=== PATIENT | female | born 1970 | race American Indian/Alaskan Native ===

== ENCOUNTER 2017-05-19 10:16 | Emergency (ER) | payer SELFPAY ==
[2017-05-19 15:46] LABS: Hematocrit 40.5 % (30.3-42.9); Hemoglobin 12.9 gm/dl (10.1-14.3); Mean Corpuscular HGB Conc 32 % (30-34); Mean Corpuscular Hemoglobin 26 pg (28-32); Mean Corpuscular Volume 82 fl (79-97); Platelet Count 302 K/mm3 (140-440); Red Blood Count 4.93 M/mm3 (3.65-5.03); Red Cell Distribution Width 14.6 % (13.2-15.2); White Blood Count 13.6 K/mm3 (4.5-11.0)
[2017-05-19 15:56] LABS: Anion Gap 13 mmol/L; BUN/Creatinine Ratio 27; Blood Urea Nitrogen 19 mg/dL (7-17); Calcium 9.6 mg/dL (8.4-10.2); Carbon Dioxide 28 mmol/L (22-30); Chloride 106.6 mmol/L (98-107); Glucose 98 mg/dL (65-100); Potassium 4.6 mmol/L (3.6-5.0); Sodium 143 mmol/L (137-145)
[2017-05-19] MEDS ORDERED: LIDOCAINE VISCOUS 2% PO ONE (18:08)
[2017-05-19] MEDS ORDERED: ALUM-MAG HYDROX-SIMETH 200-200-20MG/5ML PO ONE (18:08)
[2017-05-19 18:11] LABS: Basophils % (Manual) 0 % (0.0-1.8); Blastocytes % (Manual) 0 %
[2017-05-19 18:13] LABS: Anisocytosis 1+; Diff Status Complete; Platelet Estimate Consistent w Auto
--- NOTE | 2017-05-19 18:13 | Emergency Department Report ---
ED General Adult HPI - General Chief complaint: Chest Pain Stated complaint: HEADACHE, CHEST PAIN Time Seen by Provider: 05/19/17 17:37 Source: patient Mode of arrival: Ambulatory Limitations: No Limitations - History of Present Illness Initial comments: Patient is a 47-year-old female past history of smoking and hypertension who presents with chest pain. Patient is a stat chest pain has been going on for the last 5 days. Patient states chest pains a 5 out 10 smoking in the middle of her chest is constant and nothing makes it better R cane with her children makes the pain worse. Patient states it's a deep throbbing pain. Patient also states that she has had some mild shortness of breath. - Related Data Previous Rx's Medication Instructions Recorded Last Taken Type Acetaminophen 1,000 mg PO Q6HR PRN #30 tablet 05/19/17 Unknown Rx Lisinopril/Hydrochlorothiazide 1 tab PO QDAY #30 tablet 05/19/17 Unknown Rx [Zestoretic 10-12.5 mg] Allergies Allergy/AdvReac Type Severity Reaction Status Date / Time No Known Allergies Allergy Unverified 05/19/17 10:33 ED Review of Systems ROS: Stated complaint: HEADACHE, CHEST PAIN Other details as noted in HPI Constitutional: denies: chills, fever Eyes: denies: eye pain, eye discharge, vision change ENT: denies: ear pain, throat pain Respiratory: shortness of breath. denies: cough, wheezing Cardiovascular: chest pain. denies: palpitations Endocrine: no symptoms reported Gastrointestinal: denies: abdominal pain, nausea, diarrhea Genitourinary: denies: urgency, dysuria, discharge Musculoskeletal: denies: back pain, joint swelling, arthralgia Skin: denies: rash, lesions Neurological: denies: headache, weakness, paresthesias Psychiatric: denies: anxiety, depression Hematological/Lymphatic: denies: easy bleeding, easy bruising ED Past Medical Hx - Past Medical History Previous Medical History?: Yes Hx Hypertension: Yes - Surgical History Past Surgical History?: Yes Additional Surgical History: fatty tumor removed right under arm, oopherectomy - Social History Smoking Status: Current Every Day Smoker Substance Use Type: None - Medications Home Medications: Home Medications Medication Instructions Recorded Confirmed Last Taken Type Acetaminophen 1,000 mg PO Q6HR PRN #30 tablet 05/19/17 Unknown Rx Lisinopril/Hydrochlorothiazide 1 tab PO QDAY #30 tablet 05/19/17 Unknown Rx [Zestoretic 10-12.5 mg] ED Physical Exam - General Limitations: No Limitations General appearance: alert, in no apparent distress - Head Head exam: Present: atraumatic, normocephalic - Eye Eye exam: Present: normal appearance - ENT ENT exam: Present: mucous membranes moist - Neck Neck exam: Present: normal inspection - Respiratory Respiratory exam: Present: normal lung sounds bilaterally, chest wall tenderness. Absent: respiratory distress - Cardiovascular Cardiovascular Exam: Present: regular rate, normal rhythm. Absent: systolic murmur, diastolic murmur, rubs, gallop - GI/Abdominal GI/Abdominal exam: Present: soft, normal bowel sounds - Extremities Exam Extremities exam: Present: normal inspection - Back Exam Back exam: Present: normal inspection - Neurological Exam Neurological exam: Present: alert, oriented X3 - Psychiatric Psychiatric exam: Present: normal affect, normal mood - Skin Skin exam: Present: warm, dry, intact, normal color. Absent: rash ED Course Vital Signs 05/19/17 05/19/17 05/19/17 10:34 18:27 19:31 Temperature 99.3 F 98 F 98.1 F Pulse Rate 71 64 77 Respiratory 18 18 16 Rate Blood Pressure 158/97 Blood Pressure 140/84 124/88 [Left] O2 Sat by Pulse 100 99 99 Oximetry - Reevaluation(s) Reevaluation #1: 05/19/17 20:29 Patient's feeling better after GI cocktail I will send patient home. ED Medical Decision Making - Lab Data Result diagrams: 05/19/17 15:25 05/19/17 15:25 Lab Results 05/19/17 05/19/17 Range/Units 15:25 15:25 WBC 13.6 H (4.5-11.0) K/mm3 RBC 4.93 (3.65-5.03) M/mm3 Hgb 12.9 (10.1-14.3) gm/dl Hct 40.5 (30.3-42.9) % MCV 82 (79-97) fl MCH 26 L (28-32) pg MCHC 32 (30-34) % RDW 14.6 (13.2-15.2) % Plt Count 302 (140-440) K/mm3 Lymph # [employer] Machine [employer] Sodium 143 (137-145) mmol/L Potassium 4.6 (3.6-5.0) mmol/L Chloride 106.6 (98-107) mmol/L Carbon Dioxide 28 (22-30) mmol/L Anion Gap 13 mmol/L BUN 19 H (7-17) mg/dL Creatinine 0.7 (0.7-1.2) mg/dL Estimated GFR > 60 ml/min BUN/Creatinine Ratio 27 % Glucose 98 (65-100) mg/dL Calcium 9.6 (8.4-10.2) mg/dL Troponin T < 0.010 (0.00-0.029) ng/mL - EKG Data -: EKG Interpreted by Pr - EKG Data 05/19/17 18:12 EKG shows normal sinus rhythm no ST segment elevation or T-wave inversion normal axis. - Medical Decision Making Medical diagnosis: GERD Differential medical diagnosis: Non-STEMI, pneumothorax, pneumonia Next CBC, CMP, chest x-ray, oral pain medication and EKG Patient's dementia and laboratory findings are unremarkable. Patient was likely has GERD or costochondritis causing her chest pain I we'll send patient home with oral pain medication and a refill of her hypertension medication. Additional verbal discharge instructions were given. Patient agrees with plan. Critical care attestation.: If time is entered above; I have spent that time in minutes in the direct care of this critically ill patient, excluding procedure time. ED Disposition Clinical Impression: Chest pain Qualifiers: Chest pain type: intercostal pain Qualified Code(s): R07.82 - Intercostal pain Disposition: DC-01 TO HOME OR SELFCARE Is pt being admited?: No Does the pt Need Aspirin: No Condition: Stable Instructions: Chest Pain (ED) Prescriptions: Acetaminophen 1,000 mg PO Q6HR PRN #30 tablet PRN Reason: Pain Lisinopril/Hydrochlorothiazide [Zestoretic 10-12.5 mg] 1 tab PO QDAY #30 tablet Referrals: BHASKAR CA MD [Staff Physician] - 3-5 Days Forms: Work/School Release Form(ED)
[2017-05-19] MEDS ORDERED: ZESTRIL PO ONE (21:24)
[2017-05-19 21:35] VITALS: BP 145/97
[2017-05-19] MEDS ORDERED: NAPROSYN PO ONE (22:30)
--- NOTE | 2017-05-20 08:21 | XRay Report ---
PA and lateral chest: Chest pain. There is a partially calcified nodule in the lingula segment of left upper lobe measuring approximately 2.6 cm. This was present on a prior exam in 2012 is measuring 2.5 cm. The lungs otherwise appear clear. The heart is normal in size with no vascular congestion. Impression: Calcified left pulmonary nodule with no significant change in size. No acute finding.
== END 2017-05-19 21:41 | disposition home or self-care (01) ==
LOC: ED 10:16
DX: R07.82 Intercostal pain (principal); I10 Essential (primary) hypertension; F17.200 Nicotine dependence, unspecified, uncomplicated
CPT/HCPCS: 36415; 71020; 80048; 84484; 85007; 85025; 93005; 93010